=== PATIENT | male | born 1945 | race Caucasian/White ===

== ENCOUNTER → 2017-05-29 | Outpatient (CLI) | payer BC ==
[~2017-05-29] MED LIST: AMLH550; ASPCH81; MULT-506 PO
== END | disposition home or self-care (01) ==
LOC: C.LAB1850 11:54
PROVIDERS: ATTEND Nurse Practitioner Family
DX: N40.1 Benign prostatic hyperplasia with lower urinary tract symptoms (principal)

== ENCOUNTER → 2017-07-10 | Outpatient (CLI) | payer BC ==
[~2017-07-10] MED LIST changes: +OPTIRAY 320 IV PRN
--- NOTE | 2017-07-10 15:08 | DIAGNOSTIC IMAGING REPORT ---
CT SCAN OF THE CHEST WITH IV CONTRAST CLINICAL HISTORY: Cough of 4 weeks' duration. Smoking history. COMPARISON STUDY: Chest x-ray dated 07/06/2014. TECHNIQUE: Following the IV administration of 93 cc of Optiray 320, CT scan of the thorax was performed from the thoracic inlet to the upper abdomen. Images are reviewed in the axial, sagittal, and coronal planes. IV contrast was administered without complication. A dose lowering technique was utilized adhering to the principles of ALARA. CT DOSE: 289.43 mGycm FINDINGS: Thyroid: Imaged portions of the thyroid gland are normal in size and attenuation. Thoracic aorta: There is atherosclerotic calcification of the thoracic aorta is normal in caliber and demonstrates standard 3-vessel arch anatomy. No dissection is seen. Pulmonary vasculature: The pulmonary trunk is normal in caliber. There are no filling defects identified in the central pulmonary vessels to indicate pulmonary embolus. Note that this examination was not protocoled for evaluation of the pulmonary arteries. Heart: The heart is normal in size and configuration, and without pericardial effusion. The coronary arteries are densely calcified. Lungs and pleural spaces: Emphysema is noted. There is no airspace consolidation or pleural effusion. Mild diffuse peribronchial thickening is observed. The trachea and central airways are clear. Scattered calcified granulomas are observed. Mediastinum: There is no mediastinal lymphadenopathy. Verenice: Clear. Axillae: There is no axillary lymphadenopathy. Upper abdomen: There are 1.8 cm left and 1.2 cm right low-attenuation adrenal nodules. Colonic interposition is incidentally noted. The spleen demonstrates heterogeneous early phase enhancement. Skeletal structures: No lytic or blastic bony lesions are seen. IMPRESSION: 1. Emphysema. 2. There is no airspace consolidation or pleural effusion. 3. Mild diffuse peribronchial thickening suggests reactive airway disease. Clinical correlation will be required. 4. There are bilateral low-attenuation adrenal nodules. These likely represent fat-containing adenomas but cannot be characterized due to the presence of IV contrast. If further assessment is required then an unenhanced CT of the abdomen would likely be confirmatory. 5. Additional findings as above. Electronically signed by: Junior Sagastume M.D. 07/10/2017 3:07 PM Dictated Date/Time: 07/10/2017 3:00 PM
== END | disposition home or self-care (01) ==
LOC: C.CTS 14:10
PROVIDERS: ATTEND Family Medicine
DX: R05 Cough (principal); F17.210 Nicotine dependence, cigarettes, uncomplicated; J43.9 Emphysema, unspecified; E27.9 Disorder of adrenal gland, unspecified

== ENCOUNTER → 2017-08-06 | Outpatient (CLI) | payer BC ==
[~2017-08-06] MED LIST changes: -OPTIRAY 320 IV PRN
--- NOTE | 2017-08-06 15:16 | PULMONARY FUNCTION TEST ---
CLINICAL DATA: A 71-year-old male with a height of 69 inches and a weight of [address] Sutton for evaluation of emphysema and cough. The patient stopped smoking 2 weeks ago. Spirometry pre-bronchodilator was performed. FINDINGS: Pre-bronchodilator spirometry demonstrates mild obstructive airways disease. FVC was 91% of predicted. FEV1 was 78% of predicted. FEF 25-75 was 43% of predicted. IMPRESSION: Mild obstructive airways disease consistent with the clinical diagnosis of emphysema. MTDD
== END | disposition home or self-care (01) ==
LOC: C.RC 10:21
PROVIDERS: ATTEND Family Medicine
DX: J43.9 Emphysema, unspecified (principal); R05 Cough; F17.210 Nicotine dependence, cigarettes, uncomplicated